=== PATIENT | female | born 1940 | race Caucasian/White ===

== ENCOUNTER 2016-11-21 18:53 | Emergency (ER) | payer OTHER, MEDICARE ==
[2016-11-21 19:13] VITALS: BP 184/90
--- NOTE | 2016-11-21 19:52 | ED HEADACHE COMPLAINT ---
History of Present Illness General Chief Complaint: Headache Stated Complaint: PT HAS A HEADACHE AND VISION BLUR Source: patient, family Exam Limitations: no limitations Vital Signs & Intake/Output Vital Signs & Intake/Output Vital Signs Date Time Temp Pulse Resp B/P Pulse O2 O2 Flow FiO2 Ox Delivery Rate 11/21 1913 97.9 98 18 184/90 96 Room Air Allergies Coded Allergies: nitrofurantoin (From MACROBID) (Intermediate, RASH 11/21/16) Reconcile Medications Prednisone 10 MG TABLET 6 TAB PO DAILY TEMPORAL ARTERITIS Triage Note: TRIAGE; PT TO ED C/O INTERMITTENT HEAD PAIN X2 DAYS. PT STATES ON SHE STARTED TO HAVE DOUBLE VISION X1 EPISODE, SHE THEN STARTED TO HAVE A PAIN TO HER RIGHT PENTECOSTAL AREA THAT WAS INTERMITTENT. PAIN THEN MOVED TO THE TOP OF HER HEAD, AND IS NOW ON THE LEFT SIDE OF HER FOREHEAD AND PENTECOSTAL REGION. PT DENIES ANY VISUAL CHANGES AT THIS TIME. PT REPORTS THAT SHE HAD A FALL LAST FRIDAY WHILE WALKING UPSTAIRS, DENIES HITTING HER HEAD OR HAVING ANY LOC. DENIES ANY N/V. DENIES ANY CP/SOB. REPORTS THAT SHE TAKES ASA DAILY, AND SHE STOPPED IT TODAY DUE TO HER BEING SCHEDULED FOR A LT TKR ON 12/03. Triage Nurses Notes Reviewed? yes HPI: Patient presents with 2 complaints. The first complaint is a sharp stabbing pain in her head. The pain lasts a second or 2 and then goes away however this evening and lasted for a full minute before it went away. There are no aggravating or mitigating factors. The pain is migratory. Patient states first pain was in the right pentecostalism but since then it is been throughout her entire head and this evening's episode that lasted a minute was over the left pentecostalism. Patient states that she is getting the pain approximately once per hour. Patient also noticed yesterday while she was reading something she transiently got double vision. She was not having headache at this time and the double vision lasted approximately 30 seconds before it resolved. This evening while she had a headache in the left pentecostalism she noticed that as she read something the words were very small to the point that she could not read them however if she look far away everything looked normal. Those symptoms lasted just a few seconds and then resolved again. The visual symptoms this evening came on while she had a headache and resolved before the headache went away. While she has the headache there is no radiation and she rates it as 7 out of 10. The pain is 0 out of 10 when she is not having the pain. Past History Travel History Traveled to [place] past 21 day No Medical History Any Pertinent Medical History? see below for history Neurological: NEUROPATHY Cardiovascular: hypertension Musculoskeletal: fibromyalgia Endocrine: vitamin D deficiency Surgical History Surgical History: non-contributory Psychosocial History What is your primary language German Tobacco Use: Never used ETOH Use: denies use Illicit Drug Use: denies illicit drug use Family History Hx Contributory? No Review of Systems Review of Systems Constitutional: Reports: no symptoms. Eyes: Reports: see HPI, blurred vision, other (DOUBLE VISION). Ears, Nose, Throat, Mouth: Reports: no symptoms. Respiratory: Reports: no symptoms. Cardiovascular: Reports: no symptoms. Gastrointestinal/Abdominal: Reports: no symptoms. Genitourinary: Reports: no symptoms. Musculoskeletal: Reports: no symptoms. Skin: Reports: no symptoms. Neurological/Psychological: Reports: see HPI, headache. Hematologic/Endocrine: Reports: no symptoms. Endocrine: Reports: no symptoms. Immunologic/Allergic: Reports: no symptoms. All Other Systems: Reviewed and Negative Physical Exam Physical Exam General Appearance: well developed/nourished, alert, awake, mild distress Head: atraumatic, normal appearance, NO TENDERNESS OVER TEMPORAL ARTERIES Eyes: Bilateral: PERRL, EOMI, other (VISIUAL WAITE INTACT). Ears, Nose, Throat: normal pharynx, normal ENT inspection, hearing grossly normal Neck: normal inspection, supple, full range of motion, no midline tenderness Respiratory: normal breath sounds, chest non-tender, no respiratory distress, lungs clear Cardiovascular: regular rate/rhythm, normal peripheral pulses Gastrointestinal: normal bowel sounds, soft, non-tender, no organomegaly Back: normal inspection, normal range of motion Extremities: normal inspection, normal capillary refill, normal range of motion, pedal edema Psychiatric: awake, alert, oriented x 3 Cranial Nerves: normal hearing, normal speech, PERRL Coordination/Gait: normal finger to nose Motor/Sensory: no motor/sensory deficits Skin: intact, normal color, warm/dry Core Measures Severe Sepsis Present: No Septic Shock Present: No Progress Differential Diagnosis: IC mass/tumor, intracranial Hem., migraine CONTI, sinusitis , subarach. Hem., tension CONTI, temporal arteritis Plan of Care: Orders Procedure Date/time Status [facility] SED RATE 01/05 1949 Complete COMPREHENSIVE METABOLIC PANEL 11/21 1948 Complete CBC WITHOUT DIFFERENTIAL 11/21 1948 Complete Current Medications Sig/Sheldon Start time Last Medication Dose Stop Time Status Admin Prednisone 60 MG ONCE ONE 11/21 2129 UNVr 11/21 2130 Laboratory Tests 11/21/162006: Anion Gap 10, Estimated GFR 48 L, BUN/Creatinine Ratio 20.9, Glucose 99, Calcium 8.8, Total Bilirubin 0.5, AST 13 L, ALT 25, Alkaline Phosphatase 100, Total Protein 6.3, Albumin 3.4 L, Globulin 2.9, Albumin/Globulin Ratio 1.2, CBC w Diff NO MAN DIFF REQ, RBC 4.02 L, MCV 89.3, MCH 30.3, RDW 13.0, MPV 7.9, Gran % 75.7 H, Lymphocytes % 10.9 L, Monocytes % 8.2, Eosinophils % 4.5, Basophils % 0.7, Absolute Granulocytes 4.6, Absolute Lymphocytes 0.7 L, Absolute Monocytes 0.5, Absolute Eosinophils 0.3, Absolute Basophils 0, PUBS MCHC 34.0, ESR Westergren 54 H Diagnostic Imaging: Viewed by Me: CT Scan. Discussed w/RAD: CT Scan. Radiology Impression: PATIENT: JOANA BISHOP PRESENT AGE : 76 PATIENT ACCOUNT NO: [id number] : 38 LOCATION: [facility] ORDERING PHYSICIAN: LEXX FUNK MD SERVICE DATE: 11/21/16 EXAM TYPE: CAT - CT HEAD WO IV CONTRAST EXAMINATION: CT HEAD WITHOUT CONTRAST CLINICAL INFORMATION: Headache and double vision. COMPARISON: None. TECHNIQUE: Contiguous axial imaging was performed from the skull base to vertex without intravenous administration of contrast. DLP: 600.71 mGy-cm. FINDINGS: There is no evidence of acute intracranial hemorrhage or territorial infarction. No abnormal mass effect or midline shift is seen. Jonas to white matter differentiation is well preserved. No extra-axial fluid collections are identified. The ventricles are normal in size. Mild to moderate chronic white matter microangiopathic changes are noted. The osseous structures and soft tissues are normal. The mastoid air cells and visualized portions of the paranasal sinuses are well aerated. IMPRESSION: No acute intracranial hemorrhage or territorial infarction. 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 The possibility of a focal acute ischemic process cannot be ruled out on the basis of this study. DICTATED BY: LEXX CAGLE MD DATE/TIME DICTATED:11/21/161944 ARTISTS' MODEL:PAULA DATE/TIME TRANSCRIBED:11/21/161944 CONFIDENTIAL, DO NOT COPY WITHOUT APPROPRIATE AUTHORIZATION. <Electronically signed in Other Vendor System> SIGNED BY: LEXX CAGLE MD 11/21/161949 Comments: AGE ADJUSTED ESR WOULD BE 42. Laboratory results and CAT scan results discussed with the patient and her . The ESR raise concern for possible temporal arteritis. Patient has been informed of the risks of temporal arteritis including blindness. Patient prescribed steroids and she will discuss with her physician about further workup. Departure Departure Disposition: HOME OR SELF CARE Condition: Stable Clinical Impression Primary Impression: Headache Qualifiers: Headache type: unspecified Headache chronicity pattern: episodic headache Intractability: not intractable Qualified Code: R51 - Headache Referrals: JANNA BOWLING MD (PCP/Family) Additional Instructions: FOLLOW UP WITH YOUR DOCTOR TOMORROW REGUARDING THESE HEADACHES AND THE CONTINUATION OF THE STEROIDS. RETURN IF SYMPTOMS WORSEN OR FOR ANY CONCERNS. Departure Forms: Customer Survey General Discharge Information Prescriptions: Current Visit Scripts Prednisone 6 TAB PO DAILY #42 TAB
[2016-11-21 20:20] LABS: ABSOLUTE BASOPHIL COUNT 0 /CUMM (0.0-0.2); ABSOLUTE EOSINOPHIL COUNT 0.3 /CUMM (0.0-0.7); ABSOLUTE GRANULOCYTE CT 4.6 /CUMM (1.4-6.5); ABSOLUTE LYMPH COUNT 0.7 /CUMM (1.2-3.4); ABSOLUTE MONOCYTE COUNT 0.5 /CUMM (0.10-0.60); BASOPHIL % 0.7 % (0.0-2.0); EOSINOPHIL % 4.5 % (0-5); GRANULOCYTE % 75.7 % (42.2-75.2); HEMATOCRIT 35.9 % (37-47); MEAN CORPUSCULAR HGB 30.3 PG (27.0-31.0); MEAN CORPUSCULAR VOLUME 89.3 FL (81.0-99.0); MEAN PLATELET VOLUME 7.9 FL (7.4-10.4); PLATELET COUNT 304 /CUMM (130-400); RED BLOOD CELL CT 4.02 /CUMM (4.20-5.40); WHITE BLOOD CELL COUNT 6.1 /CUMM (4.8-10.8)
[2016-11-21] MEDS ORDERED: PREDNISONE10 M2 PO (21:29)
== END 2016-11-21 21:35 ==
LOC: ERH 18:53
PROVIDERS: Emergency Medicine
DX: R51 Headache (principal)